=== PATIENT | male | born 1940 | race Caucasian/White ===

== ENCOUNTER 2024-08-16 11:06 | Emergency (ER) | payer MEDICARE, OTHER ==
[2024-08-16 11:22] VITALS: BP 154/80; PULSE 77
[2024-08-16] MEDS ORDERED: Lidocaine/Epineph/Tetracaine 3 ML Syringe TOP ONE (11:53)
[2024-08-16] MEDS ORDERED: Lidocaine 0.5% 50 ML SDV INFILT STA (12:33)
[2024-08-16] MEDS: Diphtheria,Pertussis(Acell),Tetanus Vaccine 0.5 ML Syringe IM ONE (12:56)
[2024-08-16] MEDS: Lidocaine 1% with EPINEPHrine 1:100,000 50 ML MDV SUBCUT ONE (12:57)
== END 2024-08-16 14:08 | disposition home or self-care (01) ==
LOC: JP.ED 11:06
DX: S01.81XA Laceration without foreign body of other part of head, initial encounter (principal); E04.9 Nontoxic goiter, unspecified; I10 Essential (primary) hypertension; E78.00 Pure hypercholesterolemia, unspecified; Z86.73 Personal history of transient ischemic attack (TIA), and cerebral infarction without residual deficits; Z79.82 Long term (current) use of aspirin; Z79.899 Other long term (current) drug therapy; W01.198A Fall on same level from slipping, tripping and stumbling with subsequent striking against other object, initial encounter; Z23 Encounter for immunization
CPT/HCPCS: 12014; 70450; 70486; 72125; 76377; 90471; 90715; 99283; 99283-25